=== PATIENT | female | born 1960 | race Caucasian/White ===

== ENCOUNTER → 2020-09-18 | Outpatient (CLI) | payer OTHER | LOC: KOH-I 13:26 | DX: S93.325A Dislocation of tarsometatarsal joint of left foot, initial encounter (principal) | CPT/HCPCS: 73620 ==

== ENCOUNTER → 2020-10-22 | Outpatient (CLI) | payer OTHER | LOC: KOH-I 09:51 | DX: S92.302A Fracture of unspecified metatarsal bone(s), left foot, initial encounter for closed fracture (principal); S92.322A Displaced fracture of second metatarsal bone, left foot, initial encounter for closed fracture; S92.332A Displaced fracture of third metatarsal bone, left foot, initial encounter for closed fracture | CPT/HCPCS: 73630 ==

== ENCOUNTER → 2020-11-20 | Outpatient (CLI) | payer OTHER | LOC: KOH-I 09:28 | DX: M79.671 Pain in right foot (principal); S92.322D Displaced fracture of second metatarsal bone, left foot, subsequent encounter for fracture with routine healing; S92.332D Displaced fracture of third metatarsal bone, left foot, subsequent encounter for fracture with routine healing | CPT/HCPCS: 73630 ==

== ENCOUNTER → 2020-12-06 | Outpatient (CLI) | payer OTHER | LOC: KOH-I 11:29 | DX: S92.332A Displaced fracture of third metatarsal bone, left foot, initial encounter for closed fracture (principal); S92.342A Displaced fracture of fourth metatarsal bone, left foot, initial encounter for closed fracture; S92.322D Displaced fracture of second metatarsal bone, left foot, subsequent encounter for fracture with routine healing; S92.332D Displaced fracture of third metatarsal bone, left foot, subsequent encounter for fracture with routine healing | CPT/HCPCS: 73620 ==

== ENCOUNTER → 2021-02-14 | Outpatient (CLI) | payer OTHER | LOC: KOH-I 09:52 | DX: S92.322D Displaced fracture of second metatarsal bone, left foot, subsequent encounter for fracture with routine healing (principal); S92.332D Displaced fracture of third metatarsal bone, left foot, subsequent encounter for fracture with routine healing; S92.321D Displaced fracture of second metatarsal bone, right foot, subsequent encounter for fracture with routine healing; S92.331D Displaced fracture of third metatarsal bone, right foot, subsequent encounter for fracture with routine healing; M85.871 Other specified disorders of bone density and structure, right ankle and foot | CPT/HCPCS: 73630 ==